=== PATIENT | female | born 1990 | race African-American/Black ===

== ENCOUNTER 2016-09-21 15:31 | Emergency (ER) | payer MEDICAID ==
[2016-09-21] MEDS ORDERED: SODIUM CHLORIDE 0.9% 1,000 ML ONE (16:41)
== END 2016-09-21 17:50 | disposition home or self-care (01) ==
LOC: ER 15:31
DX: Z32.01 Encounter for pregnancy test, result positive (principal); Z87.891 Personal history of nicotine dependence
CPT/HCPCS: 36415; 80053; 81001; 83690; 84702; 85025; 96360